=== PATIENT | male | born 1950 | race Caucasian/White ===

== ENCOUNTER → 2018-05-15 09:20 | Outpatient (CLI) | payer OTHER, SELFPAY ==
--- NOTE | 2018-05-15 | DI.MRI.S_ITS ---
PROCEDURE: MR LOWER LEG LT WO CON COMPARISON: [facility], CR, TIB/FIB 2V LEFT, 07/05/2017, 11:06. INDICATIONS: PAIN IN LEFT [place] FINDINGS: Examination of right tibia and fibula shows no marrow edema. No fracture or dislocation. There is no cortical thickening or periosteal reaction seen. No bony erosive changes are noted. Mild to moderate osteoarthritic changes are noted in medial and lateral femoral tibial compartments. Ankle mortise is congruent. There is very mild soft tissue edema along anterior cortex of proximal tibia shaft. No fluid collection is seen. No signal abnormality is seen in left calf tendon and muscles. IMPRESSION: 1. No marrow signal abnormality is seen in tibial and fibular shaft. No evidence of [place]cfarland splints or stress fracture. 2. No muscle or tendon signal abnormality. 3. Mild to moderate tricompartmental osteoarthritis in left knee. Dictated by: Finn Latif M.D. on 05/15/2018 at 14:33 Approved by: Finn Latif M.D. on 05/15/2018 at 14:40
== END ==
PROVIDERS: Family Provider Internal Medicine; PCP Internal Medicine; Visit Provider Orthopaedic Surgery
DX: M79.662 Pain in left lower leg (principal); M17.12 Unilateral primary osteoarthritis, left knee
CPT/HCPCS: 73718

== ENCOUNTER → 2018-06-05 15:28 | Outpatient (CLI) | payer OTHER, SELFPAY ==
--- NOTE | 2018-06-05 15:30 | DI.MRI.S_ITS ---
PROCEDURE: MR FOOT RT WO CON INDICATIONS: PAIN RIGHT FOOT TECHNIQUE: Noncontrast sagittal T1 spin echo and T2 fast spin echo with fat saturation, long-axis T1 spin echo and T2 fast spin echo with fat saturation, short-axis T1 spin echo and T2 fast spin echo with fat saturation through the forefoot. COMPARISON: None. FINDINGS: Image quality: Excellent. Bones and joints: The cortex along the plantar aspect of the base of the 2nd proximal phalanx is slightly indistinct on the T2 sequence suspicious for cortical erosion. There is mild associated marrow edema within the base of the 2nd proximal phalanx. No bone marrow contusions or fractures. No evidence of metatarsal stress reaction or stress fracture. Bone marrow edema is demonstrated within the medial sesamoid consistent with sesamoiditis, nondisplaced fracture com or stress reaction. There is mild 1st metatarsophalangeal joint degeneration with a mild metatarsus adductus and mild hallux valgus. There is mild mid foot degeneration with scattered foci of subchondral edema. No intraosseous mass lesions. Soft tissues: There is soft tissue edema of the 2nd toe extending from the metatarsophalangeal joint distally. There is a minimal periarticular fluid along the 2nd metatarsophalangeal joint. There is mild edema extending proximally to the plantar musculature along the flexor digitorum longus tendon of the 2nd toe. The visualized plantar foot muscles otherwise demonstrate normal signal and bulk. Visualized flexor and extensor tendons appear intact, without tenosynovitis. The distal insertions of the peroneus brevis and longus tendons appear intact. The principal Lisfranc ligament appears intact. No soft tissue ganglion cysts or bursal fluid collections. Sagittal images demonstrate no evidence for plantar plate tears. IMPRESSION: 1. Soft tissue swelling and edema of the 2nd toe extending from the 2nd metatarsophalangeal joint distally is suspicious for cellulitis with possible osteomyelitis along the plantar aspect of the 2nd proximal phalanx. 2. Mild periarticular edema with minimal fluid along the 2nd metatarsophalangeal joint without a definite effusion in the joint space or periarticular erosive bony changes or edema to suggest a definite septic arthritis. 3. Mild degenerative changes of the 1st metatarsophalangeal joint with a mild hallux valgus. 4. Edema within the medial sesamoid consistent with sesamoiditis, or a stress reaction, or nondisplaced fracture. Dictated by: Jarrod Santos M.D. on 06/05/2018 at 17:02 Approved by: Jarrod Santos M.D. on 06/05/2018 at 17:23
== END ==
PROVIDERS: Family Provider Internal Medicine; PCP Internal Medicine; Visit Provider Podiatrist
DX: M79.671 Pain in right foot (principal); M19.071 Primary osteoarthritis, right ankle and foot; M20.11 Hallux valgus (acquired), right foot; R60.0 Localized edema; M79.89 Other specified soft tissue disorders
CPT/HCPCS: 73718

== ENCOUNTER 2019-03-03 20:12 | Emergency (ER) | payer OTHER, SELFPAY ==
[2019-03-03 20:17] VITALS: BP 190/98; PULSE 62; RESP 12; TEMP 36.8; O2SAT 98
--- NOTE | 2019-03-03 20:24 | DI.RAD.S_ITS ---
PROCEDURE: XR CHEST 1V INDICATIONS: chest pain TECHNIQUE: One view of the chest was acquired. COMPARISON: None. FINDINGS: Surgical changes and devices: Remote CABG Lungs and pleura: Lungs are clear. No pleural effusions or pneumothorax. Calcified granuloma, right lung base. Mediastinum: Mediastinal contours appear normal. Heart size is normal. Bones and chest wall: No suspicious bony lesions. Overlying soft tissues appear unremarkable. IMPRESSION: Remote CABG. No evidence acute pulmonary process. Dictated by: Johnathan Huang M.D. on 03/03/2019 at 20:50 Approved by: Johnathan Huang M.D. on 03/03/2019 at 20:51
[2019-03-03 20:37] LABS: Add Manual Diff / Slide Review NO; Basophils Absolute Auto 0 /uL (0-100); Basophils Percent Auto 0.5 % (0-2); Eosinophils Absolute Auto 100 /uL (0-450); Eosinophils Percent Auto 1.1 % (2-4); Hematocrit 51.7 % (41-53); Hemoglobin 17.7 g/dL (13.5-17.5); Lymphocytes Absolute Auto 2700 /uL (1100-4500); Lymphocytes Percent Auto 36.7 % (25-40); Mean Corpuscular HGB Conc 34.3 % (30-36); Mean Corpuscular Hemoglobin 31.8 PG (26-34); Mean Corpuscular Volume 92.7 fL (80-100); Monocytes Absolute Auto 600 /uL (0-900); Monocytes Percent Auto 7.9 % (3-14); Neutrophils Absolute Auto 4000 /uL (1500-7000); Neutrophils Percent Auto 53.8 % (50-75); Platelet Count 232 X10^3/uL (150-400); Red Blood Cell Count 5.57 X10^6/uL (4.5-5.9); Red Cell Distribution Width 12.9 % (11.6-14.8); White Blood Cell Count 7.4 X10^3/uL (4.5-11.0)
[2019-03-03 20:40] LABS: INR 0.9 (0.9-1.3); Prothrombin Time 10.7 SECONDS (10.1-12.7)
[2019-03-03 20:42] LABS: PTT Partial Thromboplastin Tim 37 SECONDS (26.4-36.2)
[2019-03-03 20:44] LABS: Alanine Aminotransferase 15 IU/L (<50); Albumin 4.9 g/dL (3.5-5.0); Albumin Globulin Ratio 1.7 (1.0-2.8); Alkaline Phosphatase 93 U/L (38-126); Aspartate Aminotransferase 32 IU/L (17-59); Bilirubin Total 2.4 mg/dL (0.2-1.3); Blood Urea Nitrogen 27 mg/dL (9-20); Calcium 9.5 mg/dL (8.4-10.2); Carbon Dioxide 27 mmol/L (22-32); Chloride 100 mmol/L (98-107); Creatine Kinase 40 U/L (55-170); Estimated Glomerular Filt Rate > 60.0 mL/min (>60); Globulin 2.9 g/dL (1.7-4.1); Glucose 147 mg/dL (80-110); Lipase 41 U/L (23-300); Sodium 139 mmol/L (137-145); Total Protein 7.8 g/dL (6.3-8.2)
[2019-03-03 20:50] LABS: HEMOLYSIS 53 (0-50); Potassium 3.6 mmol/L (3.4-5.1)
[2019-03-03 20:56] LABS: Troponin I < 0.012 ng/mL (0.01-0.034)
[2019-03-03 20:57] VITALS: BP 178/96; PULSE 60; O2SAT 97
[2019-03-03] MEDS: SODIUM CHLORIDE 0.9% 1,000 ML 150 ML IV (21:00)
[2019-03-03 21:44] VITALS: BP 183/90; PULSE 55; O2SAT 99
--- NOTE | 2019-03-03 22:26 | ED_ITS ---
HPI - Chest Pain General Chief Complaint: Chest Pain Stated Complaint: Chest pain Time Seen by Provider: 03/03/19 20:18 Source: patient and EMS Mode of arrival: EMS Limitations: no limitations History of Present Illness HPI narrative: 68-year-old male nonsmoker with early dementia presents by EMS for evaluation of an episode of chest pain that occurred while he was on the phone arguing with his daughter. It resolved as quickly as it came on and he has been asymptomatic for hours. He denies associated symptoms such as nausea, vomiting or diaphoresis. He has no shortness of breath or ongoing symptoms. He denies any provocation, palliation or radiation. He has had no recent travel. He denies any change in diet or medications MD complaint: chest pain Onset (ago): hour(s) Duration: intermittent and now resolved Onset: other Pain location: epigastric Severity: mild Quality: aching Relieving factors: nothing Exacerbating factors: nothing Treatments prior to arrival chest pain: none Related Data Allergies Allergy/AdvReac Type Severity Reaction Status Date / Time Penicillins Allergy Verified 03/03/19 20:39 Review of Systems Constitutional Constitutional: Denies chills, Denies fatigue, Denies fever(s), Denies frequent falls, Denies lethargy and Denies weakness Eyes Eyes: Denies change in vision, Denies eye discharge, Denies irritation and Denies loss of vision ENT Ears, Nose, Mouth, and Throat: Denies change in voice, Denies dizziness, Denies neck pain, Denies sore throat and Denies throat swelling Cardiovascular Cardiovascular: Reports chest pain, Denies irregular heart rhythm, Denies lightheadedness, Denies palpitations, Denies dyspnea, Denies dyspnea on exertion and Denies orthopnea Respiratory Respiratory: Denies cough, Denies dyspnea, Denies dyspnea on exertion and Denies wheezing Gastrointestinal Gastrointestinal: Denies abdominal pain, Denies change in bowel habits, Denies diarrhea, Denies nausea and Denies vomiting Genitourinary Genitourinary: Denies hematuria, Denies flank pain, Denies urinary incontinence and Denies urinary urgency Musculoskeletal Musculoskeletal: Denies back pain, Denies muscle weakness, Denies neck pain, Denies numbness and Denies tingling Integumentary/Breasts Skin/Breast: Denies pruritus, Denies erythema, Denies rash and Denies wounds Neurologic Neurologic: Denies behavioral changes, Denies confusion, Denies dizziness, Denies frequent falls, Denies loss of vision, Denies numbness, Denies tingling and Denies weakness Psychiatric Psychiatric: Denies anxiety, Denies behavioral changes, Denies confusion, Denies depression, Denies homicidal ideation and Denies suicidal ideation Endocrine Endocrine: Denies fatigue, Denies flushing and Denies palpitations Hematologic/Lymphatic Hematologic/Lymphatic: Denies easy bruising Allergic/Immunologic Allergic/Immunologic: Denies urticaria, Denies throat swelling and Denies wheezing Exam Narrative Exam Narrative: GENERAL: [68] year old patient appears stated age. Pleasantly confused and in no obvious distress HEAD: Atraumatic. Normocephalic. EYES: Pupils equal round and reactive. Extraocular motions intact. No scleral icterus. No injection or drainage. ENT: Nose without bleeding, purulent drainage. Throat without erythema, t onsillar hypertrophy or exudate. Airway patent. NECK: Trachea midline. Non tender CARDIOVASCULAR: Regular rate and rhythm without murmurs, gallops, or rubs. RESPIRATORY: Clear to auscultation. Breath sounds equal bilaterally. No wheezes, rales, or rhonchi. GASTROINTESTINAL: Abdomen soft, non-tender, nondistended. EXTREMITIES: No edema or joint tenderness. BACK: Nontender without deformity or crepitance. No flank tenderness. NEURO: Follows commands, speaks clearly SKIN: No rash or erythema of visible areas Initial Vital Signs Initial Vital Signs: Vital Signs Temperature 98.2 F 03/03/19 20:17 Pulse Rate 62 03/03/19 20:17 Respiratory Rate 12 03/03/19 20:17 Blood Pressure 190/98 H 03/03/19 20:17 Pulse Oximetry 98 03/03/19 20:17 Course Orders Ordered: ED Orders 03/03/19 22:31 US abdomen limited Stat Discontinued Medications Sodium Chloride (Normal Saline 0.9%) 1,000 mls @ 150 mls/hr IV CONT LACY Last Infusion: 03/03/19 23:32 Dose: 0 mls/hr Documented by: Admin: 03/03/19 21:00 Dose: 150 mls/hr Documented by: CARMEN Vital Signs Vital signs: Vital Signs - 8 hr 03/03/19 22:44 Pulse Rate 56 L Blood Pressure [Left Arm] 181/95 H Pulse Oximetry 100 MDM - Chest Pain Lab Data Result diagrams: 03/03/19 20:03 03/03/19 20:03 Labs: Lab Results 03/03/19 03/03/19 03/03/19 Range/Units 20:03 20:03 20:03 WBC 7.4 (4.5-11.0) X10^3/uL RBC 5.57 (4.5-5.9) X10^6/uL Hgb 17.7 H (13.5-17.5) g/dL Hct 51.7 (41-53) % MCV 92.7 (80-100) fL MCH 31.8 (26-34) PG MCHC 34.3 (30-36) % RDW 12.9 (11.6-14.8) % Plt Count 232 (150-400) X10^3/uL Neut % (Auto) 53.8 (50-75) % Lymph % (Auto) 36.7 (25-40) % [place] % (Auto) 7.9 (3-14) % Eos % (Auto) 1.1 L (2-4) % Baso % (Auto) 0.5 (0-2) % Neut # (Auto) 4000 (0049-2882) /uL Lymph # (Auto) 2700 (1105-9472) /uL [place] # (Auto) 600 (0-900) /uL Eos # (Auto) 100 (0-450) /uL Baso # (Auto) 0 (0-100) /uL PT 10.7 (10.1-12.7) SECONDS INR 0.9 (0.9-1.3) APTT 37 H (26.4-36.2) SECONDS Sodium 139 (137-145) mmol/L Potassium 3.6 (3.4-5.1) mmol/L Chloride 100 (98-107) mmol/L Carbon Dioxide 27 (22-32) mmol/L BUN 27 H (9-20) mg/dL Creatinine 0.90 (0.66-1.25) mg/dL Estimated GFR > 60.0 (>60) mL/min BUN/Creatinine Ratio 30.0 H (6-22) Glucose 147 H (80-110) mg/dL Calcium 9.5 (8.4-10.2) mg/dL Total Bilirubin 2.4 H (0.2-1.3) mg/dL AST 32 (17-59) IU/L ALT 15 (<50) IU/L Alkaline Phosphatase 93 (38-126) U/L Total Creatine Kinase 40 L (55-170) U/L CK-MB (CK-2) TNP CK-MB (CK-2) Rel Index TNP Troponin I < 0.012 (0.01-0.034) ng/mL Total Protein 7.8 (6.3-8.2) g/dL Albumin 4.9 (3.5-5.0) g/dL Globulin 2.9 (1.7-4.1) g/dL Albumin/Globulin Ratio 1.7 (1.0-2.8) Lipase 41 (23-300) U/L MDM Narrative Medical decision making narrative: Multiple etiologies for patient's symptoms considered including: [Cardiac versus gallbladder disease versus stress response versus other] Patient's symptoms improved or duration of stay with above-stated therapies. Findings and discharge diagnosis discussed with patient/family followed by verbalization of understanding Return precautions discussed with patient/family whom verbalize understanding. Discharge Plan Departure Patient Disposition: Home Clinical Impression: Atypical chest pain Discharge Date/Time: 03/03/19 23:38 Instructions: Essential Hypertension, DI for Atypical Chest Pain Activity Restrictions/Additional Instructions: *You have been diagnosed with [atypical chest pain, hypertension] *What to do: *Take medications as directed *Follow up with your primary care provider in 2-3 days, call for an appointment. Let them know you were seen in the Emergency Department and that we ask that you be seen in follow up *Return to ER if you should have any new, worsening or concerning symptoms Referrals: Jaya Penn MD [Primary Care Provider] -
--- NOTE | 2019-03-03 22:31 | DI.US.S_ITS ---
PROCEDURE: US ABDOMEN LIMITED INDICATIONS: PAIN; ELEVATED BILIRUBIN TECHNIQUE: Real-time focused scanning was performed of the abdomen, with image documentation. COMPARISON: None. FINDINGS: Liver is sonographically normal. 1.3 cm nonobstructing, mobile stone is noted in the gallbladder. No gallbladder wall thickening with gallbladder wall measuring 1.8 mm. No pericholecystic fluid. No sonographic Kelly's. Biliary tree is nondilated. Common bile duct measures 4.3 mm. Pancreas is obscured by bowel gas and cannot be evaluated. IMPRESSION: Cholelithiasis without sonographic evidence of cholecystitis. If there is continued clinical concern for cholecystitis, then nuclear medicine HIDA scan should be considered for further evaluation Dictated by: Deidra Hoffman MD, PhD on 03/04/2019 at 7:36 Approved by: Deidra Hoffman MD, PhD on 03/04/2019 at 7:37
[2019-03-03 22:44] VITALS: BP 181/95; PULSE 56; O2SAT 100
== END 2019-03-03 23:38 | disposition home or self-care (01) ==
PROVIDERS: Emergency Provider Emergency Medicine; Family Provider Internal Medicine; PCP Internal Medicine
DX: R07.89 Other chest pain (principal)
CPT/HCPCS: 71045; 76705; 80053; 82550; 83690; 84484; 85025; 85610; 85730; 93005; 99283; 99285